=== PATIENT | male | born 1975 | race Caucasian/White ===

== ENCOUNTER 2018-10-27 07:22 | Emergency (ER) | payer SELFPAY ==
[~2018-10-27] VITALS: Ht 157.5 cm; Wt 90.3 kg
[2018-10-27 07:28] VITALS: Ht 157.5 cm; Wt 90.3 kg
[2018-10-27 08:59] VITALS: BP 140/74
== END 2018-10-27 08:59 | disposition home or self-care (01) ==
LOC: ED 07:22
DX: S52.502A Unspecified fracture of the lower end of left radius, initial encounter for closed fracture (principal); S52.612A Displaced fracture of left ulna styloid process, initial encounter for closed fracture; S06.9X9A Unspecified intracranial injury with loss of consciousness of unspecified duration, initial encounter; F17.210 Nicotine dependence, cigarettes, uncomplicated; Z71.6 Tobacco abuse counseling; W18.30XA Fall on same level, unspecified, initial encounter; Y93.89 Activity, other specified; Y92.89 Other specified places as the place of occurrence of the external cause; Y99.8 Other external cause status
CPT/HCPCS: 90715; 99406; Q0092